=== PATIENT | female | born 2005 | race Hispanic/Latino ===

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

== ENCOUNTER 2024-01-12 21:20 | Emergency (ER) | payer OTHER, SELFPAY ==
[2024-01-12] MEDS ORDERED: hydrOXYzine 25 MG TAB ONE (22:57)
== END 2024-01-13 00:29 | disposition home or self-care (01) ==
LOC: ERS 21:20
DX: R06.02 Shortness of breath (principal); F41.9 Anxiety disorder, unspecified; F17.290 Nicotine dependence, other tobacco product, uncomplicated
CPT/HCPCS: 71045